=== PATIENT | male | born 1990 | race Caucasian/White ===

== ENCOUNTER 2021-01-16 21:04 | Emergency (ER) | payer OTHER ==
[~2021-01-16] VITALS: Ht 175.3 cm; Wt 92.5 kg
--- NOTE | 2021-01-16 21:33 | NUR ---
PATIENT WAS MSE BY DR NICHOLE IN ROOM 05A.
[2021-01-16] MEDS ORDERED: IV NORMAL SALINE 500 ML BAG IV ONE (21:45)
[2021-01-16 21:54] LABS: BASOPHILS % (AUTO) 0.4 % (0.0-2.0); EOSINOPHILS # (AUTO) 0.4 K/uL (0.0-0.7); EOSINOPHILS % (AUTO) 3.5 % (0.0-7.0); HEMATOCRIT 42.9 % (36.7-47.1); HEMOGLOBIN 14.6 g/dL (12.5-16.3); LYMPHOCYTES # (AUTO) 3.9 K/uL (20.0-40.0); LYMPHOCYTES % (AUTO) 38.2 % (20.5-51.5); MEAN CORPUSCULAR HEMOGLOBIN 29.5 uug (23.8-33.4); MEAN CORPUSCULAR HGB CONC 34 g/dL (32.5-36.3); MEAN CORPUSCULAR VOLUME 86.5 fL (73.0-96.2); MONOCYTES # (AUTO) 0.9 K/uL (2.0-10.0); MONOCYTES % (AUTO) 8.5 % (0.0-11.0); NEUTROPHILS % (AUTO) 49.4 % (38.5-71.5); PLATELET COUNT (AUTO) 295 K/uL (152-348); RED BLOOD CELL COUNT(AUTO) 4.96 MIL/uL (4.06-5.63); WHITE BLOOD COUNT (AUTO) 10.1 K/uL (3.6-10.2)
[2021-01-16 22:05] LABS: CARBON DIOXIDE 25 mmol/L (21-32); CHLORIDE 102 mmol/L (98-107); CREATININE 1.1 mg/dL (0.6-1.3); GLUCOSE 113 mg/dL (74-106); POTASSIUM 3.9 mmol/L (3.5-5.1); UREA NITROGEN, BLOOD 21 mg/dL (7-18)
[2021-01-16 22:07] LABS: *BILIRUBIN,URIN NEGATIVE (NEGATIVE); *BLOOD, URINE NEGATIVE (NEGATIVE); *CLARITY,URINE CLEAR (CLEAR); *COLOR,URINE LIGHT YELLOW (YELLOW); *KETONES,URINE NEGATIVE (NEGATIVE); *UROBILINOGEN,URINE 0.2 E.U./dl (NORMAL); LEUKOCYTE ESTERASE ,URINE NEGATIVE (NEGATIVE); NITRITE, URINE NEGATIVE (NEGATIVE); UGLUCOSE NEGATIVE (NEGATIVE)
[2021-01-16 22:10] LABS: ALANINE AMINOTRANSFERASE 41 U/L (16-63); ALKALINE PHOSPHATASE 77 U/L (50-136); ASPARTATE AMINOTRANSFERASE 30 U/L (15-37); BILIRUBIN,DIRECT 0.1 mg/dL (0.0-0.2); BILIRUBIN,TOTAL 0.2 mg/dL (0.2-1.0); TOTAL PROTEIN, SERUM 7.8 g/dL (6.4-8.2)
[2021-01-16 22:11] LABS: *AMPHETAMINE, URINE NEGATIVE (NEGATIVE); *CANNABINOID, URINE POSITIVE (NEGATIVE); *COCCAINE, URINE NEGATIVE (NEGATIVE); *OPIATE, URINE NEGATIVE (NEGATIVE); *PHENCYCLIDINE SCREEN,URINE NEGATIVE (NEGATIVE)
[2021-01-16 22:13] LABS: ACETAMINOPHEN < 2.0 ug/mL (10-30)
[2021-01-16 22:18] LABS: THYROID STIMULATING HORMONE 1.801 mIU/mL (0.358-3.740)
[2021-01-16 22:20] LABS: ETHANOL 404 MG/DL (0-0)
[2021-01-16 22:23] LABS: EOSINOPHILS % (MANUAL) 3 % (0-8); LYMPHOCYTES % (MANUAL) 38 % (20-40); MONOCYTES % (MANUAL) 9 % (2-10); NEUTROPHILS % (MANUAL) 50 % (42-75)
[2021-01-17] MEDS ORDERED: THIAMINE HCL 100 MG TABLET PO ONE (07:15)
[2021-01-17] MEDS ORDERED: THIAMINE HCL 100 MG TABLET ONE (07:20)
[2021-01-17] MEDS: FOLIC ACID/VITAMIN B COMP W-C TABLET PO SCH ×2 (07:26→08:03)
--- NOTE | 2021-01-17 07:46 | NUR ---
Dr Vera at the bedside for re eval, F/C removed per Md request. Pt able to walk to bathroom w/o difficulty.
[2021-01-17] MEDS ORDERED: IV NORMAL SALINE 1000 ML BAG IV ONE (08:00)
--- NOTE | 2021-01-17 08:09 | NUR ---
Breakfast tray provided, pt ate w/ great appetite. Able to dress himself.
--- NOTE | 2021-01-17 09:23 | NUR ---
Pt sleeping w/ both eyes closed,NAD noted.
--- NOTE | 2021-01-17 11:05 | NUR ---
IV removed. Catheter intact and site benign. Pressure and 4x4 gauze applied to site. No bleeding noted.
--- NOTE | 2021-01-17 11:09 | NUR ---
Patient given written and verbal discharge instructions. Patient verbalizes understanding of instructions. Patient is ambulatory with steady gait. Refuses offer of long term placement. Patient given list of available shelters in surrounding area.
[2021-01-17 11:10] VITALS: BP 110/59
--- NOTE | 2021-01-17 14:20 | NUR ---
Contract Administration Manager Consultation: 10:50am: Contract Administration Manager consultation requested for homelessness and substance abuse. Patient is a 30 year old male who was brought to the ED last night by paramedics after he was found lying down [place] the bushes [place] a gas station. Per ED physician's notes, patient was unresponsive at time of arrival, and per toxicology report, patient had a alcohol level of over 400 and was positive for marijuana. This morning, patient is medically cleared and awake. Per nursing, patient had stated that he would like to return to his previous living arrangement. This SW met with patient, who was standing up next to his bed, ready to be discharged. Patient is alert, oriented, and engaged in conversation with this SW. Patient stated that he is homeless, and lives on the streets in [place]. Patient stated that he would like to return to [place], and declined usp placement. Community resources discussed with the patient, and patient was receptive to receiving these resources. Patient stated that he would arrange his own transportation. Patient accepted the homeless resource packet and signed the homeless patient waiver form, which was then filed in the patient's chart. The resources provided include the following: a list of shelters: [facility] [place], [address] [place] [address], [address], ; [facility], [address] [place] [address], [address], ; [facility] [address], ; [facility] [address] [facility], ; and [place] [facility] [address], [phone], along with resources for places to go for food, showers, substance abuse treatment, mental health services, community medical clinics, and pharmacies. These include the following: the [facility] homeless directory which provides a list of places that individuals can go to throughout the week for hot meals, sack lunches, food pantries, and showers; a list of mental health clinics: [facility] [address] [place] [address], ; [facility] [address] [place] [address], ; [facility] [place] [address], ; a list of medical clinics: [facility] [address], [place]. [place], ; [facility] [address], [address] [place] [address]; [facility] [address] [facility] [place] [address], ; and a list of substance abuse programs: [facility] Substance Abuse Self-helpline ; [facility] ; [facility] ; [facility] ; [facility] ; [facility] [phone]; [facility] [phone]. SW also provided patient with information on locations of pharmacies.
== END 2021-01-17 11:11 | disposition home or self-care (01) ==
LOC: ER 21:06 → EDBD 21:06 → ER 01-17 11:11
DX: F10.129 Alcohol abuse with intoxication, unspecified (principal); Y90.8 Blood alcohol level of 240 mg/100 ml or more; R94.31 Abnormal electrocardiogram [ECG] [EKG]; Z72.0 Tobacco use; R40.20 Unspecified coma
CPT/HCPCS: 36415; 51702; 70030-TC; 70450; 71045; 72125; 84443; 85025; 85730; 93005; A4663; G0480; J7030; J7040

== ENCOUNTER 2021-01-17 16:56 | Emergency (ER) | payer OTHER ==
[~2021-01-17] VITALS: Ht 170.2 cm; Wt 81.6 kg
--- NOTE | 2021-01-17 17:05 | NUR ---
Dr Vera at the bedside for MSE.
--- NOTE | 2021-01-17 19:10 | NUR ---
Received report from APRYL Pal, patient is sleeping eyes closed. No acute distress has been noted at this time.
--- NOTE | 2021-01-17 22:00 | NUR ---
Ester tao in [facility] - 01/18/21 at 0043 by ZAID Patient requested to use the restroom, he was assisted to go use the restroom and back to his bed.
--- NOTE | 2021-01-17 22:00 | NUR ---
Patient requested to use a urinal, was given and used. Patient went back to sleep.
--- NOTE | 2021-01-18 | NUR ---
Patient is resting on bed, eyes closed. No acute distress is noted at this time.
--- NOTE | 2021-01-18 00:50 | NUR ---
Patient was given a sandwich and juice to consume.
--- NOTE | 2021-01-18 00:50 | NUR ---
Patient has fully awakened. He is alert and orientated x4. Requesting to eat a sandwich.
[2021-01-18 02:05] VITALS: BP 120/54
--- NOTE | 2021-01-18 02:05 | NUR ---
Patient discharged to home in stable condition. Written and verbal after care instructions given. Patient verbalizes understanding of instructions. Stressed follow up or return to ER for worsening s/s. Patient ambulates with steady gait, received x-ray/CT results, V/S stable, left with all personal belongings.
== END 2021-01-18 02:05 | disposition home or self-care (01) ==
LOC: ER 16:58
DX: F10.229 Alcohol dependence with intoxication, unspecified (principal); S93.401A Sprain of unspecified ligament of right ankle, initial encounter; W18.40XA Slipping, tripping and stumbling without falling, unspecified, initial encounter; Y93.01 Activity, walking, marching and hiking; Y92.89 Other specified places as the place of occurrence of the external cause; F19.10 Other psychoactive substance abuse, uncomplicated; R00.0 Tachycardia, unspecified; Z59.0 Homelessness; Z82.49 Family history of ischemic heart disease and other diseases of the circulatory system
CPT/HCPCS: 70450; 73610; A4663